=== PATIENT | female | born 1995 | race Caucasian/White ===

== ENCOUNTER 2021-03-11 08:29 | Emergency (ER) | payer OTHER ==
[2021-03-11] MEDS ORDERED: NAPROXEN500 MG PO (09:28)
== END 2021-03-11 09:49 | disposition home or self-care (01) ==
LOC: FER 08:29
DX: S93.491A Sprain of other ligament of right ankle, initial encounter (principal); W19.XXXA Unspecified fall, initial encounter; X50.1XXA Overexertion from prolonged static or awkward postures, initial encounter
CPT/HCPCS: 73610

== ENCOUNTER 2021-06-03 18:33 | Emergency (ER) | payer OTHER ==
[~2021-06-03 18:33] MED LIST: NAPROXEN500 MG PO
[2021-06-03 21:02] LABS: BASOPHIL 0.5 % (0-2); EOSINOPHIL 0.9 % (0-5); HCT 42.5 % (37.0-47.0); HGB 14.7 g/dl (12.5-16.0); LYMPHOCYTE 30.9 % (15-48); MCH 30.5 pg (25.0-31.0); MCHC 34.6 g/dL (32.0-36.0); MCV 88.2 fL (78.0-100.0); MONOCYTE 9.3 % (0-12); NEUTROPHIL 57.8 % (41-80); NRBC 0; PLT 346 K/uL (150-400); RBC 4.82 M/uL (4.20-5.40); RDW 11.9 % (11.5-14.0); WBC 8.1 K/uL (4.0-10.5)
[2021-06-03 21:06] LABS: INR 1.04 (0.9-1.2); PTT 31.4 SECONDS (24.4-34.7)
[2021-06-03 21:08] LABS: D-DIMER < 0.27 ug/mLFEU (0.00-0.41)
[2021-06-03 21:19] LABS: BILIRUBIN NEGATIVE (NEGATIVE); BLOOD 3+ Ery/uL (NEGATIVE); CLARITY CLEAR (CLEAR); COLOR YELLOW (YELLOW); GLUCOSE (U) NORMAL (NORMAL); LEUKOCYTES TRACE Leu/uL (NEGATIVE); NITRITE NEGATIVE (NEGATIVE); PROTEIN NEGATIVE (NEGATIVE)
[2021-06-03 21:21] LABS: ALBUMIN 4.1 g/dL (3.4-5.0); BILIRUBIN - TOTAL 0.2 mg/dL (0.2-1.0); BUN/CREAT RATIO (CALC) 17.6 RATIO; C-REACTIVE PROTEIN 0.9 mg/dL (<=0.90); CREATININE 0.68 mg/dL (0.51-0.95); GLOBULIN (CALCULATION) 3.6 g/dL; POTASSIUM 4.2 mmol/L (3.5-5.1); TOTAL PROTEIN 7.7 g/dL (6.4-8.2)
[2021-06-03 21:25] LABS: BACTERIA 1+; SQUAMOUS EPITHELIAL CELLS 20-50
[2021-06-03 21:37] LABS: PRO-BNP 15 pg/mL (<125)
[2021-06-03 22:25] LABS: CORONAVIRUS 2019 SARS-COV-2 NEGATIVE (NEGATIVE); INFLUENZA A NAA NEGATIVE (NEGATIVE)
[2021-06-03] MEDS ORDERED: TRAMADOL HCL50 MG PO (22:53)
[2021-06-03] MEDS ORDERED: VENTOLIN HFA18 GM INH (22:53)
[2021-06-03] MEDS ORDERED: VIBRAMYCIN100 MG PO (22:53)
[2021-06-03] MEDS ORDERED: MEDROL 4MG DOSEP4 MG PO (22:53)
== END 2021-06-03 23:17 | disposition home or self-care (01) ==
LOC: FER 18:33
PROVIDERS: Emergency Medicine
DX: R07.89 Other chest pain (principal); Z20.822 Contact with and (suspected) exposure to COVID-19
CPT/HCPCS: 36415; 80053; 81001; 83735; 83880; 84145; 84484; 85025; 85379; 85610; 85730; 86140; 87040; 93005; J1170; J2405; U0002